=== PATIENT | female | born 1940 | race Caucasian/White ===

== ENCOUNTER → 2017-07-12 | Outpatient (CLI) | payer OTHER, BC ==
[~2017-07-12] MED LIST: ASPI-435 PO; CHOL1TAB42 PO; DIAZ2TAB2 PO; ENALAPRIL MALEATE PO; HYDR25TA5 PO; TERA1CAP63 PO
--- NOTE | 2017-07-14 08:12 | MAMMOGRAPHY REPORT ---
BILATERAL DIGITAL SCREENING MAMMOGRAM WITH CAD: 07/12/2017 CLINICAL HISTORY: Routine screening. Patient has no complaints. TECHNIQUE: Bilateral CC and MLO views were obtained. Current study was also evaluated with a Compute r Aided Detection (CAD) system. COMPARISON: Comparison is made to exams dated: 07/11/2016 mammogram, 07/08/2015 mammogram, 4 mammogram, 07/03/2013 mammogram, 07/02/2012 mammogram, and 06/29/2011 mammogram - [facility]. BREAST COMPOSITION: The tissue of both breasts is heterogeneously dense, which may obscure small mas ses. FINDINGS: There are a few scattered benign calcifications in the breasts. No suspicious mass, milady ectural distortion or cluster of suspicious microcalcifications is seen. IMPRESSION: ACR BI-RADS CATEGORY 1: NEGATIVE There is no mammographic evidence of malignancy. A 1 year screening mammogram is recommended. The pa tient will receive written notification of the results. Approximately 10% of breast cancers are not detected with mammography. A negative mammographic report should not delay biopsy if a clinically suggestive mass is present. Claudia Bravo M.D. ay/:07/12/2017 12:32:51 Display Coordinator: Yee Santoyo, [facility] letter sent: Normal 1/2 BI-RADS Code: ACR BI-RADS Category 1: Negative
== END | disposition home or self-care (01) ==
LOC: C.MAMM 09:06
PROVIDERS: ATTEND Family Medicine
DX: Z12.31 Encounter for screening mammogram for malignant neoplasm of breast (principal)

== ENCOUNTER 2018-04-13 12:32 | Emergency (ER) | payer OTHER, BC ==
[~2018-04-13] VITALS: Ht 147.3 cm; Wt 75.0 kg
[2018-04-13 12:35] VITALS: TEMP 36.6; Ht 147.3 cm; Wt 75.0 kg
[2018-04-13] MEDS ORDERED: ASPI81TA28 PO (13:06)
[2018-04-13] MEDS ORDERED: HYDR25TA5 PO (13:06)
[2018-04-13] MEDS ORDERED: DIAZ2TAB PO (13:06)
[2018-04-13] MEDS ORDERED: ENAL1TAB31 PO (13:06)
[2018-04-13] MEDS ORDERED: TERA10CA24 PO (13:06)
[2018-04-13] MEDS ORDERED: METOPROLOL TARTRATE 1 MG/ML VIAL IV STA (13:31)
--- NOTE | 2018-04-13 13:37 | DIAGNOSTIC IMAGING REPORT ---
CHEST ONE VIEW PORTABLE CLINICAL HISTORY: Hypertensive urgency. Back pain. COMPARISON STUDY: No previous studies for comparison. FINDINGS: The cardiac and mediastinal contours are normal. There is no evidence of focal pulmonary consolidation. There is no evidence of failure. No pleural effusions are visualized.[ There are minor right basilar atelectatic changes. Apparent slight interstitial thickening, likely relates to technical factors. IMPRESSION: No active disease in the chest. Electronically signed by: Greyson Rodriguez M.D. 04/13/2018 1:36 PM Dictated Date/Time: 04/13/2018 1:35 PM
[2018-04-13 13:44] LABS: BASO % 0.2 %; BASO ABS # 0.02 K/uL (0-0.2); EOS % 0.5 %; EOS ABS # 0.04 K/uL (0-0.5); HEMATOCRIT 43.3 % (37-47); HEMOGLOBIN 14.8 g/dL (12.0-16.0); IG# 0.01 K/uL (0.00-0.02); LYMPH % 11.4 %; LYMPH ABS # 0.97 K/uL (1.2-3.4); MEAN CORPUSCULAR HEMOGLOBIN 30.8 pg (25-34); MEAN CORPUSCULAR HGB CONC 34.2 g/dl (32-36); MEAN PLATELET VOLUME 10.4 fL (7.4-10.4); MONO % 6.9 %; MONO ABS # 0.59 K/uL (0.11-0.59); NEUT % 80.9 %; NEUT ABS # 6.88 K/uL (1.4-6.5); PLATELET COUNT 245 K/uL (130-400); RED CELL DISTRIBUTION WIDTH CV 12.8 % (11.5-14.5); RED CELL DISTRIBUTION WIDTH SD 42.1 fL (36.4-46.3); WHITE BLOOD COUNT 8.51 K/uL (4.8-10.8)
--- NOTE | 2018-04-13 13:55 | EMERGENCY ROOM VISIT NOTE ---
History First contact with patient: 13:13 Chief Complaint: HYPERTENSION Stated Complaint: BACK PAIN, HIGH BLOOD PRESSURE History of Present Illness The patient is a 77 year old female who presents to the Emergency Room with complaints of very high blood pressure that she realized today. The patient was seen at [facility] for acute on chronic back pain prior to coming to the ED. She had x-rays of her back. There were no acute fractures. The patient denies any injury or fall. She has been seeing a chiropractor for the back. While she was at [facility] today, her blood pressure was found to be significantly elevated at 195/100. The patient does have a history of hypertension. She reports taking her medications as directed. She denies any changes in her medications. She denies any chest pain, shortness of breath, headache, changes in vision or dizziness. No recent illnesses. She is eating and drinking normally. Review of Systems 10 system review performed and negative unless noted in HPI or below Past Medical/Surgical History Hypertension Chronic pain Social History Smoking Status: Never Smoker Current/Historical Medications Scheduled Amlodipine Besylate (Norvasc), 1 TAB PO DAILY Aspirin (Aspirin Ec), 81 MG PO DAILY Enalapril Maleate (Vasotec), 20 MG PO BID Hydrochlorothiazide (Hydrochlorothiazide), 25 MG PO QAM Lidocaine (Lidocaine), 1 PATCH TD DAILY Ondasetron Odt (Zofran Odt), 4 MG SL Q6H Terazosin HCl (Terazosin HCl), 10 MG PO DAILY Scheduled PRN Diazepam (Valium), 1 MG PO DAILY PRN for Anxiety Hydrocodone/Acetaminophen 5MG/325MG (Barrett 5MG/325MG), 1 TABLET PO Q4H PRN for Pain Physical Exam Vital Signs Date Time Temp Pulse Resp B/P (MAP) Pulse Ox O2 Delivery O2 Flow Rate FiO2 04/13/18 18:26 115 20 162/107 95 Room Air 04/13/18 17:04 99 04/13/18 16:28 84 18 180/125 95 Room Air 162/102 04/13/18 14:30 91 18 206/124 96 Room Air 04/13/18 13:28 84 04/13/18 12:35 36.6 93 20 195/103 96 Room Air Physical Exam GENERAL: 77-year-old female, in no acute distress, nondiaphoretic, well- developed well-nourished. SKIN: The skin was without rashes, erythema, edema, or bruising. HEAD: Normocephalic atraumatic. EYES:. Conjunctivae without injection, sclerae without icterus. Extraocular movements intact. MOUTH: Mucous membranes moist. NECK: Supple without nuchal rigidity. No lymphadenopathy. No JVD. HEART: Regular rate and rhythm without murmurs gallops or rubs. LUNGS: Clear to auscultation bilaterally without wheezes, rales or rhonchi. No accessory muscle use. ABDOMEN: Positive bowel sounds x 4.Soft, nontender, without organomegaly. No guarding or rebound tenderness. MUSCULOSKELETAL: No muscle atrophy, erythema, or edema noted. Strength 5/5 throughout. Mild tenderness over the mid thoracic spinous processes. NEURO: Patient was alert and oriented to person place and time. Cranial nerves grossly intact. Normal sensation to touch. No focal neurological deficits. Medical Decision & Procedures ER Provider Diagnostic Interpretation: Chest x-ray IMPRESSION: No active disease in the chest. Electronically signed by: Greyson Rodriguez M.D. 04/13/2018 1:36 PM Dictated Date/Time: 04/13/2018 1:35 PM The status of this report is Signed. Draft = Not yet reviewed or approved by Radiologist. Signed = Reviewed and approved by Radiologist. Laboratory Results 04/13/18 12:25 Red Blood Count 4.81, Mean Corpuscular Volume 90.0, Mean Corpuscular Hemoglobin 30.8, Mean Corpuscular Hemoglobin Concent 34.2, Mean Platelet Volume 10.4, Neutrophils (%) (Auto) 80.9, Lymphocytes (%) (Auto) 11.4, Monocytes (%) (Auto) 6.9, Eosinophils (%) (Auto) 0.5, Basophils (%) (Auto) 0.2, Neutrophils # (Auto) 6.88, Lymphocytes # (Auto) 0.97, Monocytes # (Auto) 0.59, Eosinophils # (Auto) 0.04, Basophils # (Auto) 0.02 04/13/18 12:25 Test 04/13/18 12:25 04/13/18 13:50 White Blood Count 8.51 K/uL (4.8-10.8) Red Blood Count 4.81 M/uL (4.2-5.4) Hemoglobin 14.8 g/dL (12.0-16.0) Hematocrit 43.3 % (37-47) Mean Corpuscular Volume 90.0 fL (80-100) Mean Corpuscular Hemoglobin 30.8 pg (25-34) Mean Corpuscular Hemoglobin Concent 34.2 g/dl (32-36) Platelet Count 245 K/uL (130-400) Mean Platelet Volume 10.4 fL (7.4-10.4) Neutrophils (%) (Auto) 80.9 % Lymphocytes (%) (Auto) 11.4 % Monocytes (%) (Auto) 6.9 % Eosinophils (%) (Auto) 0.5 % Basophils (%) (Auto) 0.2 % Neutrophils # (Auto) 6.88 K/uL (1.4-6.5) Lymphocytes # (Auto) 0.97 K/uL (1.2-3.4) Monocytes # (Auto) 0.59 K/uL (0.11-0.59) Eosinophils # (Auto) 0.04 K/uL (0-0.5) Basophils # (Auto) 0.02 K/uL (0-0.2) RDW Standard Deviation 42.1 fL (36.4-46.3) RDW Coefficient of Variation 12.8 % (11.5-14.5) Immature Granulocyte % (Auto) 0.1 % Immature Granulocyte # (Auto) 0.01 K/uL (0.00-0.02) Anion Gap 12.0 mmol/L (3-11) Est Creatinine Clear Calc Drug Dose 55.8 ml/min Estimated GFR () 90.4 Estimated GFR (Non- 78.0 BUN/Creatinine Ratio 17.4 (10-20) Calcium Level 9.1 mg/dl (8.5-10.1) Magnesium Level 2.2 mg/dl (1.8-2.4) Troponin I 0.038 ng/ml (0-0.045) Thyroid Stimulating Hormone (TSH) 0.670 uIu/ml (0.300-4.500) Urine Color YELLOW Urine Appearance CLEAR (CLEAR) Urine pH 7.5 (4.5-7.5) Urine Specific [place] 1.014 (1.000-1.030) Urine Protein NEG (NEG) Urine Glucose (UA) NEG (NEG) Urine Ketones 1+ (NEG) Urine Occult Blood TRACE (NEG) Urine Nitrite NEG (NEG) Urine Bilirubin NEG (NEG) Urine Urobilinogen NEG (NEG) Urine Leukocyte Esterase TRACE (NEG) Urine WBC (Auto) 1-5 /hpf (0-5) Urine RBC (Auto) 5-10 /hpf (0-4) Urine Hyaline Casts (Auto) 0 /lpf (0-5) Urine Epithelial Cells (Auto) 5-10 /lpf (0-5) Urine Bacteria (Auto) NEG (NEG) Medications Administered Medications (Trade) Dose Ordered Sig/Kaela Route Start Time Stop Time Status Last Admin Dose Admin Enalapril Maleate (Vasotec Tab) 10 mg NOW STAT PO 04/13/18 14:12 04/13/18 14:54 DC 04/13/18 14:51 10 MG Morphine Sulfate (MoRPHine SULFATE INJ) 2 mg ONE STAT IV 04/13/18 15:20 04/13/18 15:22 DC 04/13/18 15:20 2 MG Hydralazine HCl (HydrALAZINE INJ) 10 mg ONE STAT IV. 04/13/18 15:56 04/13/18 15:57 DC 04/13/18 16:53 10 MG Morphine Sulfate (MoRPHine SULFATE INJ) 2 mg NOW STAT IV 04/13/18 17:28 04/13/18 17:29 DC 04/13/18 18:06 2 MG Amlodipine Besylate (Norvasc Tab) 5 mg NOW ONCE PO 04/13/18 17:30 04/13/18 17:31 DC 04/13/18 18:05 5 MG Lidocaine (Lidoderm Patch 5%) 1 patch ONE STAT TD 04/13/18 18:20 04/13/18 18:22 DC 04/13/18 18:20 1 PATCH ECG Per My Interpretation Indication: other Rate (beats per minute): 82 Rhythm: normal sinus Comparison ECG Date: Q waves present in V3 and V4 ED Course Patient was seen and examined Vital signs including blood pressure were reviewed medications list was verified with patient Labs were obtained, and a saline lock was established The patient was medicated with enalapril 10 mg p.o. Upon reevaluation, her blood pressure was still high. She was also complaining of thoracic back pain. She was ordered morphine 2 mg IV and hydralazine 10 mg IV. The case was discussed with my supervising physician who is in agreement with my plan Imaging was performed and reviewed the patient was reassessed and more comfortable. She was still complaining of back pain. She was given an additional dose of morphine. We discussed her workup. She voiced understanding , was comfortable being discharged home. The patient was given 1 dose of Norvasc 5 mg and a Lidoderm patch I reviewed discharge instructions the patient. They voiced understanding and had no further questions. Medical Decision Differential diagnosis: Essential hypertension, hypertensive urgency versus emergency, musculoskeletal pain, aortic dissection, pulmonary embolus among others were considered this patient is a 77-year-old female presents to the emergency department with a main complaint of midthoracic back pain after being evaluated first at [place]. On exam, she had some tenderness over the thoracic spine. She was found to be significantly hypertensive, which is why she was sent here for further evaluation. Regarding her hypertension, the patient is asymptomatic. She denies any neurologic or cardiovascular symptoms. Her workup here is fairly unremarkable. Troponin is negative. EKG shows no signs of acute ischemia or infarction. Chest x-ray is clear. I ordered a CT angiogram to rule out dissection. This was also negative. The patient has difficulty with many different blood pressure medications. She was initially treated with her home medication, enalapril. There was no significant improvement. She was subsequently treated with hydralazine and then Norvasc. The patient will continue her current medications as prescribed. She was given a short course of Norvasc. She is able to monitor her blood pressure at home. She was given a short course of narcotics for pain for her back pain as this is not helping her hypertension. The patient was advised to have very close follow-up with her primary care physician. She was also cautioned on signs for which to return to the ED. This chart was completed in part utilizing [employer] Speech Voice Recognition software. Attempts were made to minimize the grammatical errors, random word insertions, pronoun errors and incomplete sentences. Any formal questions or concerns about the content, text or information contained within the body of this dictation should be directly addressed to the provider for clarification. Medication Reconcilliation Current Medication List: was personally reviewed by me Blood Pressure Screening Patient's blood pressure: Elevated blood pressure Blood pressure disposition: Referred to PCP Impression Primary Impression: HTN (hypertension) Departure Information Dispostion Home / Self-Care Condition GOOD Prescriptions Amlodipine Besylate (NORVASC) 5 Mg Tab 1 TAB PO DAILY for 30 Days, #30 TAB Prov: Kaitlyn Henderson PA-C 04/13/18 Ondasetron Odt (ZOFRAN ODT) 4 Mg Tab 4 MG SL Q6H for Nausea, #20 TAB Prov: Kaitlyn Henderson PA-C 04/13/18 Hydrocodone/Acetaminophen 5MG/325MG (Barrett 5MG/325MG) Tab 1 TABLET PO Q4H Y for Pain, #15 TAB For Initial Treatment Prov: Kaitlyn Henderson PA-C 04/13/18 Lidocaine (LIDOCAINE) 5 % Pad 1 PATCH TD DAILY for Pain, #15 PATCH Prov: Kaitlyn Henderson PA-C 04/13/18 Referrals Marcelina Marti D.ODavid (PCP) Patient Instructions My [facility] Additional Instructions You have been evaluated in the emergency department for high blood pressure. Please continue all of your current medications as prescribed Please take Norvasc 5 mg tablets 1 tablet daily. Please start this medication tomorrow morning. Please monitor your blood pressure. If the blood pressure remains high such as greater than 180/100, please take an additional dose of 1 tablet please apply the Lidoderm patch to the area of pain once daily You may continue ibuprofen 2 tabs every 6 hours as needed for pain For severe pain, please take Barrett 1 tab every 4 hours. This medication may cause drowsiness and constipation. Please take a stool softener while taking the medication. Do not drink alcohol or drive it is very important to have close follow-up with your primary care physician. Please call first thing Monday morning for a follow-up appointment. Do not hesitate to return to the emergency department with any new, worsening or concerning symptoms; especially, chest pain, difficulty breathing, confusion or slurred speech It was a pleasure participating in your care today
[2018-04-13] MEDS ORDERED: ENALAPRIL MALEATE 5 MG TAB PO STA ×2 (14:12→14:18)
[2018-04-13 14:46] LABS: CALCIUM 9.1 mg/dl (8.5-10.1); CREATININE 0.75 mg/dl (0.60-1.20); POTASSIUM 3.5 mmol/L (3.5-5.1)
[2018-04-13] MEDS ORDERED: KETOROLAC TROMETHAMINE 30 MG/ML VIAL IV STA (14:54)
[2018-04-13] MEDS ORDERED: MoRPHine SULFATE 4 MG/ML 1 ML CARP\\VIAL IV STA (15:20)
[2018-04-13] MEDS ORDERED: OPTIRAY 320 IV PRN (15:30)
[2018-04-13] MEDS ORDERED: MoRPHine SULFATE 2 MG/ML CARP ONE (15:34)
[2018-04-13] MEDS ORDERED: HydrALAZINE HCL 20 MG/ML VIAL IV. STA (15:56)
--- NOTE | 2018-04-13 16:09 | DIAGNOSTIC IMAGING REPORT ---
CT ANGIO ABD/PELVIS WITH CONTRAST CT DOSE: CLINICAL HISTORY: Chest and abdominal pain. Hypertension. Possible dissection. TECHNIQUE: The patient was scanned in a dynamic helical fashion during intravenous administration of 119 cc of Optiray 320. MIP imaging was performed. A dose lowering technique was utilized adhering to the principles of ALARA. COMPARISON STUDY: None. FINDINGS: The visualized portions the lung bases reveal mild septal thickening and subtle groundglass opacities with a mosaic distribution. There are no pleural effusions. No hepatic or splenic masses are visualized this arterial phase study. No gallbladder abnormalities are visualized. No pancreatic lesions are visualized. Neither adrenal gland is pathologically enlarged. There is a 33 mm left renal cyst. 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 There are no transition zones indicate bowel obstruction. The appendix appears normal. There is colonic diverticulosis. There is no acute diverticulitis. There is a small fat-containing right inguinal hernia. There is no evidence of aortic aneurysm or dissection. There is no evidence of celiac or superior mesenteric artery stenosis. There is no evidence of renal artery stenosis. The inferior mesenteric artery is patent. There is no evidence of external or common iliac artery stenosis. There is an L2 vertebral body hemangioma IMPRESSION: 1. No evidence of abdominal aortic aneurysm or dissection 2. No evidence of aortic, common iliac, or external iliac artery stenosis 3. No evidence of superior mesenteric, celiac, or renal artery stenosis. Electronically signed by: Greyson Rodriguez M.D. 04/13/2018 4:08 PM Dictated Date/Time: 04/13/2018 4:02 PM
--- NOTE | 2018-04-13 16:12 | DIAGNOSTIC IMAGING REPORT ---
CHEST COMBO ANGIO DISSECTION CLINICAL HISTORY: 77 years-old Female presenting with ^thoracic back pain High BP, questionable dissection. TECHNIQUE: Multidetector CT angiography of the chest was performed before and after the administration of intravenous contrast. 3-D volumetric and/or maximum intensity projection (MIP) images were subsequently reconstructed for review. IV contrast: 119 mL of Optiray 320. A dose lowering technique was used consistent with the principles of ALARA (as low as reasonably achievable). COMPARISON: None. CT DOSE (mGy.cm): The estimated cumulative dose is 892.84 mGy.cm. FINDINGS: Computer Technician topogram: Unremarkable. Vasculature: The study is adequate for assessment of the aorta. Precontrast imaging demonstrates no evidence of intramural hematoma. Postcontrast imaging demonstrates no evidence of dissection, penetrating ulcer, or aneurysm. Prominent fat along the course of the descending thoracic aorta (series 7 image 134). Tortuosity of the branch vessels of the aorta likely indicate chronic hypertension. Allowing for timing of the contrast bolus, no gross evidence of a filling defect within the pulmonary arteries to suggest embolus. Main pulmonary artery is not enlarged. No flattening of the interventricular septum. No intracardiac filling defect. No reflux of contrast into the hepatic veins. Remaining chest: On soft tissue windows, normal thyroid and thoracic inlet. No axillary, supraclavicular, hilar, or mediastinal lymphadenopathy. Multichamber enlargement of the heart. Small hiatal hernia. Left renal cyst. Liver density consistent with hepatic steatosis. On lung windows, respiratory motion artifact degrades evaluation of lung parenchyma. Allowing for this, mosaic attenuation evident, which may suggest small airways disease. Mild bronchial wall thickening noted diffusely. Atelectasis noted along the course of the descending thoracic aorta. Central airways patent. No pneumothorax. On bone windows, degenerative changes of the spine. Benign hemangioma noted at the level of T4 and L2. IMPRESSION: 1. No evidence of acute aortic injury. No gross evidence of pulmonary embolism. 2. Bronchial wall thickening and mosaic attenuation of the lungs could suggest reactive airways disease or viral bronchiolitis. 3. Hepatic steatosis. 4. Small hilar hernia. 5. Cardiomegaly. Electronically signed by: Nik Bangura M.D. 04/13/2018 4:11 PM Dictated Date/Time: 04/13/2018 4:01 PM
--- NOTE | 2018-04-13 16:39 | EMERGENCY ROOM VISIT NOTE ---
ED Visit Note First contact with patient: 13:13 Patient was seen by our PA/MATERIALS HANDLING COORDINATOR. I was involved in the patient's care and did evaluate the patient myself. I was involved in the care throughout the ER stay. Patient presents with higher blood pressure and some back pain. Workup here does not show evidence for aortic dissection. The patient will have her pain and blood pressure managed. I do suspect she will be discharged home once feeling improved.
[2018-04-13] MEDS ORDERED: MoRPHine SULFATE 2 MG/ML CARP IV STA (17:28)
[2018-04-13] MEDS ORDERED: AMLODIPINE BESYLATE 5 MG TAB PO ONE (17:30)
[2018-04-13] MEDS ORDERED: HYDR-5688 PO (18:06)
[2018-04-13] MEDS ORDERED: LIDO1PAD2 TD (18:06)
[2018-04-13] MEDS ORDERED: ONDA4TAB10 SL (18:06)
[2018-04-13] MEDS ORDERED: AMLO5TAB4 PO (18:06)
[2018-04-13] MEDS ORDERED: LIDODERM (LIDOCAINE) PATCH 5% TD STA (18:20)
[2018-04-13 18:26] VITALS: BP 162/107; PULSE 115; O2SAT 95
[2018-04-14] MEDS ORDERED: LIDODERM (LIDOCAINE) PATCH 5% TD SCH (09:00)
== END 2018-04-13 18:41 | disposition home or self-care (01) ==
LOC: C.EDB 12:33 → C.EDC 18:41
DX: I10 Essential (primary) hypertension (principal); M54.6 Pain in thoracic spine; Z79.82 Long term (current) use of aspirin